=== PATIENT | male | born 1990 | race African-American/Black ===

== ENCOUNTER 2024-02-27 11:48 | Outpatient (REF) | payer OTHER, SELFPAY ==
[2024-02-28 07:53] LABS: Prolactin 9.4 ng/mL (2.0-18.0)
== END 2024-02-27 11:49 | disposition home or self-care (01) ==
LOC: HO.LAB 11:48
PROVIDERS: Visit Provider Psychiatry & Neurology Neurology
DX: D35.2 Benign neoplasm of pituitary gland (principal)
CPT/HCPCS: 36415; 84146; 84307